=== PATIENT | male | born 1945 | race Caucasian/White ===

== ENCOUNTER → 2018-06-05 | Outpatient (CLI) | payer OTHER ==
[~2018-06-05] MED LIST: CARB25TA12 PO; CARB50TA3 PO; CZR25 PO; DXY100 PO; MULT-106 PO; POLY335019 PO; PRAM0.1212 PO; PRAV20TA PO; RASA0.5T PO; SYN50 PO; TAMS0.4C38 PO; ZNT150 PO
--- NOTE | 2018-06-05 10:56 | DIAGNOSTIC IMAGING REPORT ---
ORBIT RADIOGRAPHS 3 VIEWS HISTORY: pre-MRI screening. COMPARISON: None. FINDINGS: There are no radiopaque foreign bodies identified within the orbits. IMPRESSION: No radiopaque foreign bodies identified within the orbits. Electronically signed by: Jere Franco M.D. 06/05/2018 10:55 AM Dictated Date/Time: 06/05/2018 10:54 AM
--- NOTE | 2018-06-05 12:30 | DIAGNOSTIC IMAGING REPORT ---
MRI OF THE BRAIN WITHOUT CONTRAST CLINICAL HISTORY: PARKINSON'S DISEASE COMPARISON STUDY: None. TECHNIQUE: Utilizing a 1.5 Hellen magnet and dedicated coil, multiplanar, multiecho imaging of the brain was performed without IV contrast. In addition, thin cut sagittal 3-D FSPGR sequence was performed. FINDINGS: There are no foci of restricted diffusion to suggest acute infarct. No acute intracranial hemorrhage, midline shift or mass effect is present. Moderate atrophy is noted. Ventricular system is unremarkable for age. Basilar cisterns are patent. There are no extra-axial collections. No intracranial mass is identified on this unenhanced examination. A few suspected old lacunar infarcts within the right cerebellar hemisphere are noted. Calvarial signal is maintained. Scattered small white matter T2 hyperintense foci are noted. IMPRESSION: 1. No acute intracranial findings. 2. Moderate atrophy. 3. 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 Electronically signed by: Jere Franco M.D. 06/05/2018 12:28 PM Dictated Date/Time: 06/05/2018 12:25 PM
== END | disposition home or self-care (01) ==
LOC: C.MRI 10:10
PROVIDERS: ATTEND Psychiatry & Neurology Neurology
DX: G20 Parkinson's disease (principal); G31.9 Degenerative disease of nervous system, unspecified; Z13.89 Encounter for screening for other disorder